=== PATIENT | male | born 1980 | race Two or more races ===

== ENCOUNTER 2021-05-22 17:30 | Emergency (ER) | payer MEDICAID ==
[~2021-05-22] VITALS: Ht 175.3 cm; Wt 72.6 kg
[2021-05-22] MEDS ORDERED: DexAMETHasone SOD PHOS 10MG/1ML VIAL INJ IM ONE (19:00)
[2021-05-22] MEDS ORDERED: diphenhdrAMINE HCL 25 MG CAP PO ONE (19:00)
[2021-05-22 19:44] VITALS: BP 117/72
== END 2021-05-22 20:47 | disposition home or self-care (01) ==
LOC: ER 17:30 → EDBD 17:30 → ER 20:47
DX: T78.40XA Allergy, unspecified, initial encounter (principal); L50.9 Urticaria, unspecified; X58.XXXA Exposure to other specified factors, initial encounter
CPT/HCPCS: 96372; 99283; J1100